=== PATIENT | female | born 1950 | race African-American/Black ===

== ENCOUNTER 2021-11-05 11:59 | Emergency (ER) | payer MEDICARE, MEDICAID ==
[~2021-11-05] VITALS: Ht 170.2 cm; Wt 77.0 kg
[2021-11-05 12:04] VITALS: BP 159/86
[2021-11-05] MEDS ORDERED: METF-414 MT (14:41)
== END 2021-11-05 14:53 | disposition home or self-care (01) ==
LOC: ER 11:59
DX: Z76.0 Encounter for issue of repeat prescription (principal); E11.9 Type 2 diabetes mellitus without complications; I10 Essential (primary) hypertension
CPT/HCPCS: 99283

== ENCOUNTER 2022-01-24 12:20 | Emergency (ER) | payer MEDICARE, MEDICAID ==
[~2022-01-24] VITALS: Ht 172.7 cm; Wt 81.0 kg
[~2022-01-24 12:20] MED LIST: METF-414 MT
[2022-01-24 12:24] VITALS: BP 160/80
== END 2022-01-24 13:31 | disposition left against medical advice (07) ==
LOC: ER 13:14
DX: R68.89 Other general symptoms and signs (principal); E11.9 Type 2 diabetes mellitus without complications; I10 Essential (primary) hypertension
CPT/HCPCS: 93005; 99283